=== PATIENT | male | born 1985 | race Caucasian/White ===

== ENCOUNTER 2018-06-17 18:38 | Emergency (ER) | payer OTHER ==
[2018-06-17 18:52] VITALS: BP 140/79; PULSE 86; TEMP 97.7; BMI 36.5
--- NOTE | 2018-06-17 19:41 | PDOC ---
History of Present Illness - General History Source: Patient Exam Limitations: No Limitations - History of Present Illness Initial Comments: 06/17/18 19:59 The patient is a 32 year old male, with no significant PMH who presents to the emergency department with a rash to the face, back, mouth, tongue, bilateral hands, and bilateral feet since yesterday morning. Patient reports the rash is itchy and has noticed a difference in the taste of food or drink. Patient reports going to urgent care yesterday night and was prescribed prednisone with a steroid cream. Patient took 2 of prednisone and benadryl last night and 2 of prednisone this morning. Patient also applied the steroid cream with minimal improvement. Denies fevers or chills. Patient denies any sick contact or recent travel. The patient denies chest pain, shortness of breath, headache and dizziness. Denies fever, chills, nausea, vomit, diarrhea and constipation. Denies dysuria, frequency, urgency and hematuria. Allergies: NKA Past surgical history: None reported. Social history: No reported alcohol, drug or cigarette use. <Karin Rossi - Last Filed: 06/17/18 19:59> <Beena Easton - Last Filed: 06/18/18 03:34> - General Chief Complaint: Rash Stated Complaint: RASH TO FACE,HANDS,WRISTS, ARMS AND FEET Time Seen by Provider: 06/17/18 19:09 Past History <Karin Rossi - Last Filed: 06/17/18 19:59> - Past Medical History Asthma: Yes COPD: No - Immunization History Immunization Up to Date: No - Suicide/Smoking/Psychosocial Hx Smoking History: Never smoked Have you smoked in the past 12 months: No Information on smoking cessation initiated: No Hx Alcohol Use: No Drug/Substance Use Hx: No Substance Use Type: None <Beena Easton - Last Filed: 06/18/18 03:34> - Past Medical History Allergies/Adverse Reactions: Allergies Allergy/AdvReac Type Severity Reaction Status Date / Time No Known Allergies Allergy Verified 06/17/18 18:39 Home Medications: Ambulatory Orders Diphenhydramine HCl [Benadryl Capsule -] 1 cap PO PRN 06/17/18 Prednisone [Deltasone] 40 mg PO DAILY 06/17/18 Review of Systems - Review of Systems Able to Perform ROS?: Yes Comments:: 06/17/18 19:54 ADULT ROS GENERAL/CONSTITUTIONAL: No fever or chills. No weakness. HEAD, EYES, EARS, NOSE AND THROAT: No change in vision. No ear pain or discharge. No sore throat. CARDIOVASCULAR: No chest pain or shortness of breath. RESPIRATORY: No cough, wheezing, or hemoptysis. GASTROINTESTINAL: No nausea, vomiting, diarrhea or constipation. GENITOURINARY: No dysuria, frequency, or change in urination. MUSCULOSKELETAL: No joint or muscle swelling or pain. No neck or back pain. SKIN: (+) rash NEUROLOGIC: No headache, vertigo, loss of consciousness, or change in strength/ sensation. ENDOCRINE: No increased thirst. No abnormal weight change. HEMATOLOGIC/LYMPHATIC: No anemia, easy bleeding, or history of blood clots. ALLERGIC/IMMUNOLOGIC: No hives or skin allergy. <Karin Rossi - Last Filed: 06/17/18 19:59> *Physical Exam - Vital Signs Last Vital Signs Temp Pulse Resp BP Pulse Ox 97.7 F 86 16 140/79 96 06/17/18 18:39 06/17/18 18:39 06/17/18 18:39 06/17/18 18:39 06/17/18 18:39 - Physical Exam Comments: 06/17/18 19:54 ADULT EXAM GENERAL: Awake, alert, and fully oriented, in no acute distress HEAD: No signs of trauma EYES: PERRLA, EOMI, sclera anicteric, conjunctiva clear ENT: Auricles normal inspection, hearing grossly normal, nares patent, oropharynx clear without exudates. Moist mucosa NECK: Normal ROM, supple, no lymphadenopathy, JVD, or masses LUNGS: Breath sounds equal, clear to auscultation bilaterally. No wheezes, and no crackles HEART: Regular rate and rhythm, normal S1 and S2, no murmurs, rubs or gallops ABDOMEN: Soft, nontender, normoactive bowel sounds. No guarding, no rebound. No masses EXTREMITIES: Normal range of motion, no edema. No clubbing or cyanosis. No cords, erythema, or tenderness NEUROLOGICAL: Cranial nerves II through XII grossly intact. Normal speech, normal gait SKIN: Warm, Dry, normal turgor, (+) Maculopapular, scattered vesicular rash on the face, oropharynx, tongue, back, bilateral hands, bilateral plantar surfaces of the feet. <Karin Rossi - Last Filed: 06/17/18 19:59> - Vital Signs Last Vital Signs Temp Pulse Resp BP Pulse Ox 97.7 F 86 16 140/79 96 06/17/18 18:39 06/17/18 18:39 06/17/18 18:39 06/17/18 18:39 06/17/18 18:39 <Beena Easton - Last Filed: 06/18/18 03:34> Progress Note - Progress Note Progress Note: Documentation has been prepared under my direction and personally reviewed by me in its entirety. I attest that this documented accurately reflects all work, treatment, procedures and medical decision making performed by me. <Beena Easton - Last Filed: 06/18/18 03:34> Medical Decision Making - Medical Decision Making As noted above, this 32-year-old man presents with a few day history of pruritic papulovesicular rash of the face, pharynx/tongue, back, hands and plantar aspects of both feet. No history of fever/chills or other systemic symptoms. Patient was seen in urgent care and given oral steroids/steroid cream. He presents now because of persistent rash. No known sick contacts and his toddler child does not have any fever or rash. Exam as noted. Because a characteristic mouth and hand/foot rash, this is likely coxsackie enterovirus. This patient does not have severe systemic symptoms, Benadryl should be continued. Whether steroid cream/prednisone should be continued is equivocal buddies been advised to continue them until seen by his general doctor.. He should follow-up with his general doctor within the next 3-4 days. Meanwhile, he should practice rigorous handwashing <Beena Easton - Last Filed: 06/18/18 03:34> *DC/Admit/Observation/Transfer - Attestations Scribe Attestion: 06/17/18 19:54 Documentation prepared by Karin Rossi, acting as biomedical field service engineer for Beena Easton MD. <Karin Rossi - Last Filed: 06/17/18 19:59> <Beena Easton - Last Filed: 06/18/18 03:34> Diagnosis at time of Disposition: Hand, foot and mouth disease - Discharge Dispostion Disposition: HOME Condition at time of disposition: Stable - Patient Instructions Printed Discharge Instructions: Hand, Foot, and Mouth Disease Additional Instructions: continue medications as prescribed return if symptoms worsen followup with your doctor within 3-4 days
== END 2018-06-17 20:02 | disposition home or self-care (01) ==
LOC: FER 18:38
DX: B08.4 Enteroviral vesicular stomatitis with exanthem (principal)
CPT/HCPCS: 99281-25

== ENCOUNTER 2019-01-18 10:24 | Emergency (ER) | payer SELFPAY ==
[2019-01-18 10:29] VITALS: BP 157/98; PULSE 92; TEMP 98.8; BMI 37.1
[2019-01-18] MEDS ORDERED: ACETAMINOPHEN 325 MG TABLET (FP) PO ONE (10:44)
--- NOTE | 2019-01-18 10:47 | PDOC ---
History of Present Illness - General Chief Complaint: Injury Stated Complaint: RT. ARM LACERATION Time Seen by Provider: 01/18/19 10:41 History Source: Patient Exam Limitations: No Limitations - History of Present Illness Associated Symptoms: denies: fever/chills (right forearm laceration sustained when a silverware fell on arm today) Past History - Travel Traveled outside of the country in the last 30 days: No Close contact w/someone who was outside of country & ill: No - Past Medical History Allergies/Adverse Reactions: Allergies Allergy/AdvReac Type Severity Reaction Status Date / Time No Known Allergies Allergy Verified 01/18/19 10:30 Home Medications: Ambulatory Orders Diphenhydramine HCl [Benadryl Capsule -] 1 cap PO PRN 06/17/18 Prednisone [Deltasone] 40 mg PO DAILY 06/17/18 Ibuprofen 800 mg PO ACDIN 7 Days #30 tablet 01/18/19 Asthma: Yes COPD: No - Immunization History Immunization Up to Date: No - Suicide/Smoking/Psychosocial Hx Smoking History: Never smoked Have you smoked in the past 12 months: No Information on smoking cessation initiated: No Hx Alcohol Use: No Drug/Substance Use Hx: No Substance Use Type: None Review of Systems - Review of Systems Is the patient limited [place] proficient: No Constitutional: No: Chills, Fever Musculoskeletal: Yes: Other (forearm laceration and tenderness--right) Neurological: No: Numbness, Paresthesia, Tingling, Weakness *Physical Exam - Vital Signs Last Vital Signs Temp Pulse Resp BP Pulse Ox 98.8 F 92 H 18 157/98 94 L 01/18/19 10:26 01/18/19 10:26 01/18/19 10:26 01/18/19 10:26 01/18/19 10:26 - Physical Exam General Appearance: Yes: Nourished Respiratory/Chest: positive: Lungs Clear, Normal Breath Sounds Cardiovascular: positive: Regular Rhythm, Regular Rate, S1, S2 Extremity: positive: Normal Capillary Refill, Normal Range of Motion, Tender ( right forearm--2cm linear laceration noted in distal lateral portion for right forearm, no active bleeding, foreign body. 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, Fully Oriented, Alert Procedures - Laceration/Wound Repair Right Upper Arm Wound's Depth, Shape: superficial Irrigated w/ Saline: Yes Betadine Prep: Yes Anesthesia: 2% Lidocaine Wound Repaired With: Sutures Suture Size/Type: 3:0 Number of Sutures: 4 Splint Applied: Yes ED Treatment Course - RADIOLOGY Radiology Studies Ordered: Category Date Time Status FOREARM- RIGHT [RAD] Stat Radiology 01/18/19 10:44 Ordered Medical Decision Making - Medical Decision Making 01/18/19 10:47 33y/o M with no prior med hx p/w right forearm laceration sustained when a silverware fell on his arm today unsure of last tetanus xray no FB or fx lac repaired with 3.0 nylon, 4 stitches dressed tetanus updated pulse ox repeat 97% on RA, 01/18/19 16:55 *DC/Admit/Observation/Transfer Diagnosis at time of Disposition: Laceration - Discharge Dispostion Disposition: HOME Condition at time of disposition: Stable Decision to Admit order: No - Prescriptions Prescriptions: Ibuprofen 800 mg PO ACDIN 7 Days #30 tablet - Referrals - Patient Instructions Printed Discharge Instructions: DI for Laceration Repair Additional Instructions: Keep area dry your xray was negative for acute fracture Return to the ER or PCP for suture removal in 10 days Return sooner if area is red, warm, discharge coming out or painful - Post Discharge Activity Forms/Work/School Notes: Back to Work
[2019-01-18] MEDS ORDERED: ACETAMINOPHEN 325 MG TABLET (FP) ONE (10:48)
[2019-01-18] MEDS ORDERED: DIPHTH,PERTUSS(ACELL),TET 0.5 ML DISP.SYRIN IM ONE ×2 (11:52→12:00)
== END 2019-01-18 12:10 | disposition home or self-care (01) ==
LOC: JERFT 10:24
PROC: 3E0234Z Introduction of Serum, Toxoid and Vaccine into Muscle, Percutaneous Approach (ICD-10-PCS; principal; 2019-01-18)
PROC: 0HQDXZZ Repair Right Lower Arm Skin, External Approach (ICD-10-PCS; 2019-01-18)
DX: S51.811A Laceration without foreign body of right forearm, initial encounter (principal); W22.8XXA Striking against or struck by other objects, initial encounter; Y93.89 Activity, other specified; Y92.89 Other specified places as the place of occurrence of the external cause; Y99.8 Other external cause status
CPT/HCPCS: 73090-TC-RT-FY; 90715; 99281-25

== ENCOUNTER 2019-01-29 06:53 | Emergency (ER) | payer SELFPAY ==
[2019-01-29 07:06] VITALS: BP 129/80; PULSE 94; TEMP 98.3; BMI 38.4
--- NOTE | 2019-01-29 07:40 | PDOC ---
Suture Removal/Wound Check HPI - History of Present Illness Chief Complaint: Suture/Staple Removal(Here) Stated Complaint: ER FOLLOW-UP Time Seen by Provider: 01/29/19 07:36 History Source: Yes: Patient Exam Limitations: Yes: No Limitations Treated at: [facility] ED Date of Last ED visit: 01/20/19 - Previous ED Treatment Type of procedure performed on last visit: Yes: Laceration Repair Tetanus Immunization: Yes: Given at last ED visit Antibiotics Prescribed: No Past History - Travel Traveled outside of the country in the last 30 days: No Close contact w/someone who was outside of country & ill: No - Past Medical History Allergies/Adverse Reactions: Allergies Allergy/AdvReac Type Severity Reaction Status Date / Time No Known Allergies Allergy Verified 01/29/19 07:06 Home Medications: Ambulatory Orders NK [No Known Home Medication] 01/29/19 Asthma: Yes COPD: No - Immunization History Immunization Up to Date: No - Suicide/Smoking/Psychosocial Hx Smoking History: Never smoked Have you smoked in the past 12 months: No Hx Alcohol Use: No Drug/Substance Use Hx: No Substance Use Type: None Patient Lives Alone: No Lives with/in: spouse/SO Suture Removal/Wound Check PE - Physical Exam Laceration/Wound Check Symptoms: reports: None Current Severity Level: None Maximum Severity Level: None Pain Localization: None Location of Laceration/Wound: right: Arm Pain Radiation: None *Review of Systems - Review of Systems Able to Perform ROS?: Yes Constitutional: No: Fever Musculoskeletal: No: Symptoms Reported Integumentary: No: Symptoms Reported *Physical Exam - Vital Signs Last Vital Signs Temp Pulse Resp BP Pulse Ox 98.3 F 94 H 16 129/80 98 01/29/19 07:02 01/29/19 07:02 01/29/19 07:02 01/29/19 07:02 01/29/19 07:02 - Physical Exam General Appearance: Yes: Nourished, Appropriately Dressed. No: Apparent Distress Integumentary: positive: Other (laceration site with slight erythema and minimal fluctuance surrounding his sutures) Neurologic: positive: Motor Strength 5/5 (ambulatory) Medical Decision Making - Medical Decision Making 01/29/19 07:38 CC: Suture removal. no complaints of fever redness or swelling to area. Exam: Removal for sutures without difficulty using an 11 blade noted slight erythema and mild fluctuance surrounding site. After sutures are removed pressure was applied to site and noted minimal amount of blood exuding from suture holes Plan: Bacitracin applied patient recommended to observe for worsening redness or swelling and to apply bacitracin for the next 3 days to area *DC/Admit/Observation/Transfer Diagnosis at time of Disposition: Encounter for removal of sutures - Discharge Dispostion Disposition: HOME Condition at time of disposition: Improved - Referrals - Patient Instructions Printed Discharge Instructions: DI for Suture Removal Additional Instructions: I recommend to observe for worsening redness or swelling and to apply bacitracin for the next 3 days to area - Post Discharge Activity
--- NOTE | 2019-01-29 07:46 | PDOC ---
*Physical Exam - Vital Signs Last Vital Signs Temp Pulse Resp BP Pulse Ox 98.3 F 94 H 16 129/80 98 01/29/19 07:02 01/29/19 07:02 01/29/19 07:02 01/29/19 07:02 01/29/19 07:02 Medical Decision Making - Medical Decision Making 01/29/19 07:45 33 yo M presenting for assessment of suture repair Skin around sutures erythematous Suture removed with no expressible purulence Pt seen by Midlevel Provider under my direct supervision I agree with plan as outlined by Midlevel Provider topical abx Observe for worsening of erythema If noted, return to the ER *DC/Admit/Observation/Transfer Diagnosis at time of Disposition: Encounter for removal of sutures - Discharge Dispostion Disposition: HOME Condition at time of disposition: Improved - Referrals - Patient Instructions Printed Discharge Instructions: DI for Suture Removal Additional Instructions: I recommend to observe for worsening redness or swelling and to apply bacitracin for the next 3 days to area - Post Discharge Activity
== END 2019-01-29 07:51 | disposition home or self-care (01) ==
LOC: JER 06:53
DX: Z48.817 Encounter for surgical aftercare following surgery on the skin and subcutaneous tissue (principal); Z48.02 Encounter for removal of sutures
CPT/HCPCS: 99281-25

== ENCOUNTER 2019-03-26 00:43 | Emergency (ER) | payer SELFPAY ==
--- NOTE | 2019-03-26 01:05 | PDOC ---
History of Present Illness - General Stated Complaint: EYE IRRITATION Time Seen by Provider: 03/26/19 01:01 History Source: Patient Exam Limitations: No Limitations Past History - Travel Traveled outside of the country in the last 30 days: No Close contact w/someone who was outside of country & ill: No - Past Medical History Allergies/Adverse Reactions: Allergies Allergy/AdvReac Type Severity Reaction Status Date / Time No Known Allergies Allergy Verified 03/26/19 01:17 Home Medications: Ambulatory Orders Erythromycin 0.5% Eye Ointment [Erythromycin 0.5% Eye Ointment -] 1 applic OS TID #1 tube 03/26/19 Asthma: Yes COPD: No - Immunization History Immunization Up to Date: No - Suicide/Smoking/Psychosocial Hx Smoking History: Never smoked Have you smoked in the past 12 months: No Hx Alcohol Use: No Drug/Substance Use Hx: No Substance Use Type: None Review of Systems - Review of Systems Able to Perform ROS?: Yes Comments:: 03/26/19 01:51 CONSTITUTIONAL: Absent: fever, chills, diaphoresis, generalized weakness, malaise, loss of appetite HEENT: Present: L eye pain and redness. Absent: rhinorrhea, nasal congestion, throat pain, throat swelling, difficulty swallowing, mouth swelling, ear pain, eye pain , visual Changes MUSCULOSKELETAL: Absent: myalgia, arthralgia, joint swelling SKIN: Absent: rash, itching, pallor NEUROLOGIC: Absent: headache, focal weakness or paresthesias, dizziness, unsteady gait, seizure, mental status changes, bladder or bowel incontinence PSYCHIATRIC: Absent: anxiety, depression, suicidal or homicidal ideation, hallucinations. Is the patient limited [place] proficient: No *Physical Exam - Physical Exam Comments: 03/26/19 01:52 GENERAL: The patient is awake, alert, and fully oriented, in no acute distress. HEAD: Normal with no signs of trauma. EYES: Pupils equal, round and reactive to light, extraocular movements intact, sclera anicteric, L conjunctiva is injected. Fluorsciene stain shows a corneal abrasion of the inferior half of the L pupil. EXTREMITIES: Normal range of motion, no edema. NEUROLOGICAL: Normal speech, normal gait. PSYCH: Normal mood, normal affect. SKIN: Warm, Dry, normal turgor, no rashes or lesions noted. Medical Decision Making - Medical Decision Making 03/26/19 01:56 the patient is a 33-year-old male who presents to the emergency department today for left eye pain. The patient states that starting this morning his eye became very red and painful. He notes that he usually wears contacts and he feels he might have had something scratch on his contacts.He also states he might have gotten dust in his eye at work as he works as a deputy general counsel. Denies visual changes, discharge from the eye, spots and floaters, vision A/P:Corneal abrasion On fluorescein stain patient with a corneal abrasion of the inferior half of the pupil. We'll place patient on erythromycin ointment. Advised to not wear contacts until his symptoms resolve. Advised patient to follow up with ophthalmology. Discharge home I discussed the physical exam findings, ancillary test results and final diagnoses with the patient. I answered all of the patient's questions. The patient was satisfied with the care received and felt comfortable with the discharge plan and treatment plan. The Patient agrees to follow up with the primary care physician/specialist within 24-72 hours. Return precautions were given. *DC/Admit/Observation/Transfer Diagnosis at time of Disposition: Corneal abrasion Qualifiers: Encounter type: initial encounter Laterality: left Qualified Code(s): S05.02XA - Injury of conjunctiva and corneal abrasion without foreign body, left eye, initial encounter - Discharge Dispostion Disposition: HOME Condition at time of disposition: Stable Decision to Admit order: No - Prescriptions Prescriptions: Erythromycin 0.5% Eye Ointment [Erythromycin 0.5% Eye Ointment -] 1 applic OS TID #1 tube - Referrals Referrals: Sam Chi MD [Staff Physician] - - Patient Instructions Printed Discharge Instructions: DI for Corneal Abrasion Additional Instructions: You have a corneal abrasion (scratch on the eye) Use the erythromycin ointment three times a day to the L eye Do not wear your contacts until your symptoms resolve Please follow up with your eye doctor this week for further evaluation Return to the ER for any new or worsening symptoms - Post Discharge Activity Forms/Work/School Notes: Back to Work
[2019-03-26] MEDS ORDERED: TETRACAINE 0.5% HCL 0.6ML DROPPER.BOTTLE OS ONE (01:11)
[2019-03-26] MEDS ORDERED: FLUORESCEIN NA 1 EA STRIP OS ONE (01:12)
[2019-03-26] MEDS ORDERED: TETRACAINE 0.5% OPHTH SOLN 2 ML BOTTLE ONE ×2 (01:14→01:44)
[2019-03-26] MEDS ORDERED: FLUORESCEIN NA 1 EA STRIP ONE ×2 (01:14→01:45)
[2019-03-26 01:17] VITALS: TEMP 98.1; BMI 40.4
[2019-03-26] MEDS ORDERED: ERYTHROMYCIN 0.5% OPHTHALMIC OINTMENT 3.5 GM TUBE OS ONE (01:21)
[2019-03-26] MEDS ORDERED: ERYTHROMYCIN 0.5% OPHTHALMIC OINTMENT 3.5 GM TUBE ONE (01:44)
[2019-03-26 02:57] VITALS: BP 145/86; PULSE 74
== END 2019-03-26 01:50 | disposition home or self-care (01) ==
LOC: JER 00:43
DX: S05.02XA Injury of conjunctiva and corneal abrasion without foreign body, left eye, initial encounter (principal); X58.XXXA Exposure to other specified factors, initial encounter; Y93.89 Activity, other specified; Y92.89 Other specified places as the place of occurrence of the external cause; Y99.8 Other external cause status
CPT/HCPCS: 99282-25; G0397